=== PATIENT | female | born 2000 | race Caucasian/White ===

== ENCOUNTER 2022-09-27 09:35 | Outpatient (CLI) | payer MEDICAID ==
[2022-09-27 10:16] LABS: THYROID STIMULATING HORMONE 3.16 uIU/mL (0.34-5.60)
[2022-09-27 10:26] LABS: HCG,QUALITATIVE BLOOD NEGATIVE
== END 2022-09-27 09:36 | disposition home or self-care (01) ==
LOC: LAB 09:35
PROVIDERS: ATTEND Nurse Practitioner
DX: R63.4 Abnormal weight loss (principal); Z30.9 Encounter for contraceptive management, unspecified
CPT/HCPCS: 36415; 84443; 84703

== ENCOUNTER 2022-11-15 08:00 | Outpatient (CLI) | payer MEDICAID ==
[2022-11-15 18:04] LABS: CHLAMYDIA TRACHOMATIS DNA NEGATIVE (NEGATIVE); NEISSERIA GONORRHOEAE DNA NEGATIVE (NEGATIVE)
[2022-11-15 20:39] LABS: BACTERIAL VAGINOSIS DNA POSITIVE (NEGATIVE); CANDIDA GLABRATA DNA NEGATIVE (NEGATIVE); CANDIDA GROUP DNA NEGATIVE (NEGATIVE); CANDIDA KRUSEI DNA NEGATIVE (NEGATIVE); TRICHOMONAS VAGINALIS DNA NEGATIVE (NEGATIVE)
== END 2022-11-15 23:59 | disposition home or self-care (01) ==
LOC: LAB 08:00
PROVIDERS: ATTEND Nurse Practitioner
DX: N89.8 Other specified noninflammatory disorders of vagina (principal)
CPT/HCPCS: 81514; 81599; 87109; 87491; 87591; 87661

== ENCOUNTER 2023-05-03 11:34 | Outpatient (CLI) | payer MEDICAID ==
--- NOTE | 2023-05-03 19:57 | Ultrasound Report ---
PROCEDURE: Pelvic w/Transvaginal INDICATIONS: MENORRHAGIA TECHNIQUE: Real-time scanning was performed of the pelvic organs, with image documentation. Additional endovagi nal scanning was necessary due to incomplete visualization of the adnexal and endometrial structures by transabdominal scanning. COMPARISON: None. FINDINGS: Uterus: Uterus is anteverted and normal in size at 7.8 x 3.2 x 4.1 cm. The myometrium is heterogene ous. The endometrium measures 4 mm in combined thickness. IUD is in appropriate position. Cervix an d vagina are within normal limits. Ovaries: The right ovary measures 3.5 x 2.1 x 1.7 cm, with a calculated ovarian volume of 6.4 cc. T he left ovary measures 3.1 x 1.6 x 1.2 cm, with a calculated ovarian volume of 3 cc. The ovaries hav e a normal sonographic appearance. Less than 12 follicles can be seen in each ovary. No adnexal mas ses are seen. No cystic lesions measuring greater than 3 cm. Other: No pathologic free abdominal or pelvic fluid. IMPRESSION: 1.IUD is in appropriate position. 2.Bilateral ovaries are normal. Reviewed by: Alessandro Hoff MD on 05/03/2023 7:56 PM PST Approved by: Alessandro Hoff MD on 05/03/2023 7:56 PM PST Station ID: [id number]
== END 2023-05-03 11:35 | disposition home or self-care (01) ==
LOC: DI 11:34
PROVIDERS: ATTEND Nurse Practitioner
DX: N92.0 Excessive and frequent menstruation with regular cycle (principal); Z97.5 Presence of (intrauterine) contraceptive device

== ENCOUNTER 2023-05-22 10:28 | Outpatient (CLI) | payer MEDICAID ==
[~2023-05-22 10:28] MED LIST: GADOTERATE MEGLUMINE 10 MMOL/20 ML VIAL ONE
[2023-05-22] MEDS: GADOTERATE MEGLUMINE 10 MMOL/20 ML VIAL IVP ONE (11:47)
--- NOTE | 2023-05-22 12:05 | MRI Report ---
PROCEDURE: Pelvis W/WO INDICATIONS: PELVIC PAIN CONTRAST: CLARISCAN 10.8 ML TECHNIQUE: Coronal ultra fast SE, sagittal breath-hold T2 FSE; axial T1 FSE with and without fat saturation thro ugh the pelvis. Optional long- and short-axis uterine nonbreath-hold T2 FSE through the uterus. Sag ittal or axial dynamic ultra fast GE during administration of contrast. Post-contrast axial or coron al ultra fast GE / 2-D spoiled GE with fat saturation from the iliac crests to the symphysis. Option al diffusion weighted imaging and ADC may be performed. COMPARISON: Pelvic ultrasound 05/03/2023 FINDINGS: Image quality: Excellent. Uterus: Uterus is normal in size. Endometrium is normal in thickness. Junctional zone is normal in thickness at 12 mm or less. IUD within the central uterus. Adnexa: Both ovaries are normal in size, without suspicious cystic or solid lesions. Right-sided co rpus luteum. Urinary system: Bladder wall is normal in thickness. Distal ureters are non distended. Urethra elie ears normal in morphology. Nodes and vessels: No pelvic or inguinal adenopathy by size criteria. Iliac vessels are normal in s ize. Bowel and peritoneum: No pathologic free pelvic fluid. Inferior colon and small bowel loops are nor mal in caliber. Soft tissues: No inguinal hernias. No findings of pelvic floor incompetence in the absence of provo cation. Bones: Marrow demonstrates normal overall signal. IMPRESSION: Right-sided corpus luteum. IUD appropriately positioned within the endometrium. Reviewed by: Adelfo Juarez MD on 05/22/2023 12:04 PM PST Approved by: Adelfo Juarez MD on 05/22/2023 12:04 PM PST Station ID: [id number]
== END 2023-05-22 10:29 | disposition home or self-care (01) ==
LOC: DI 10:28
PROVIDERS: ATTEND Nurse Practitioner
DX: N83.11 Corpus luteum cyst of right ovary (principal)
CPT/HCPCS: 72197; A9575

== ENCOUNTER 2023-06-02 15:04 | Outpatient (CLI) | payer MEDICAID ==
[2023-06-02 15:17] LABS: BASOPHILS # (AUTO) 0.1 10^3/uL (0.0-0.1); BASOPHILS % (AUTO) 0.6 %; EOSINOPHILS # (AUTO) 0.6 10^3/uL (0.0-0.7); EOSINOPHILS % (AUTO) 6.7 %; HCT - HEMATOCRIT 44.5 % (37.0-47.0); HGB - HEMOGLOBIN 14.7 g/dL (12.0-16.0); LYMPHOCYTES # (AUTO) 3.4 10^3/uL (1.5-3.5); LYMPHOCYTES % (AUTO) 35.6 %; MEAN CORPUSCULAR HEMOGLOBIN 29.7 pg (27.0-31.0); MEAN CORPUSCULAR VOLUME 89.9 fL (81.0-99.0); MEAN PLATELET VOLUME 9.4 fL (7.9-10.8); MONOCYTES # (AUTO) 0.5 10^3/uL (0.0-1.0); MONOCYTES % (AUTO) 4.7 %; NEUTROPHILS % (AUTO) 52.2 %; PLT - PLATELET COUNT 283 10^3/uL (130-450); RED BLOOD COUNT 4.95 10^6/uL (4.20-5.40); RED CELL DISTRIBUTION WIDTH 12.1 % (12.0-15.0); WHITE BLOOD COUNT 9.6 x10^3/uL (4.8-10.8)
[2023-06-02 15:29] LABS: ALBUMIN 4.6 g/dL (3.2-5.5); ALBUMIN/GLOBULIN RATIO 1.5 (1.0-2.2); BILIRUBIN,TOTAL 0.6 mg/dL (0.2-1.0); CALCIUM 9.8 mg/dL (8.5-10.3); CREATININE 0.7 mg/dL (0.6-1.3); POTASSIUM 3.7 mmol/L (3.5-4.5); TOTAL PROTEIN 7.6 g/dL (6.4-8.9)
[2023-06-02 15:36] LABS: ESTIMATED AVERAGE GLUCOSE 91 mg/dL (70-100); HEMOGLOBIN A1c% 4.8 % (4.27-6.07)
[2023-06-02 15:48] LABS: FERRITIN 47.8 ng/mL (11.0-306.8)
== END 2023-06-02 15:05 | disposition home or self-care (01) ==
LOC: LAB 15:04
PROVIDERS: ATTEND Nurse Practitioner
DX: R55 Syncope and collapse (principal)
CPT/HCPCS: 36415; 80053; 82728; 83036; 85025